=== PATIENT | female | born 1970 | race Caucasian/White ===

== ENCOUNTER → 2017-07-03 | Outpatient (CLI) | payer OTHER ==
[~2017-07-03] MED LIST: ACET-1693 PO; ALBU1AER9 INH; FLUT0.15 NAE; MELATAB2 PO; MULT-506 PO
--- NOTE | 2017-07-03 14:34 | DIAGNOSTIC IMAGING REPORT ---
TWO VIEW CHEST CLINICAL HISTORY: Chronic cough. FINDINGS: PA and lateral chest radiographs are compared to study dated 07/04/2014. The cardiomediastinal silhouette is unremarkable. The lungs and pleural spaces are clear. There is no pneumothorax. The bony thorax appears intact. IMPRESSION: No active disease in the chest. Electronically signed by: Kenrick Amanda M.D. 07/03/2017 2:32 PM Dictated Date/Time: 07/03/2017 2:32 PM
== END | disposition home or self-care (01) ==
LOC: C.RAD1850 14:07
PROVIDERS: ATTEND Family Medicine
DX: R05 Cough (principal)

== ENCOUNTER → 2017-07-15 | Outpatient (CLI) | payer OTHER ==
--- NOTE | 2017-07-15 15:58 | DIAGNOSTIC IMAGING REPORT ---
FUSION CT SINUSES W/O CLINICAL HISTORY: J32.9 Chronic sinusitis COMPARISON STUDY: No previous studies for comparison. FINDINGS: The right mastoid appears sclerotic, likely on a chronic basis. The middle ear cavities appear symmetrically aerated. There is very minimal maxilla sinus mucosal thickening. There is minor ethmoid sinus mucosal thickening. Frontal sinuses are hypoplastic. There are no air-fluid levels to indicate acute sinusitis. There are bilateral Gianni cells. There is soft tissue narrowing of the ostial portion of the right ostiomeatal unit. The ethmoid notches are protected. The left olfactory groove measures 6 mm in depth. The right olfactory groove measures 6 mm in depth. The sphenoid and frontal ethmoidal recesses appear patent bilaterally. There is a 7 mm faintly calcified lesion in the region of the right olfactory groove. An MRI without a with gadolinium, with thin sections targeted to this area is recommended in follow-up. IMPRESSION: 1. 7 mm faintly calcified lesion in the region of the right olfactory groove. An MRI is recommended in follow-up. 2. No evidence of acute sinusitis 3. Minor mucosal thickening within the maxillary and ethmoid sinuses 4. Sclerotic right mastoid likely chronic 5. Bilateral Gianni cells. Narrowing of the ostial portion of the right ostiomeatal unit Electronically signed by: Perfecto Shin M.D. 07/15/2017 3:57 PM Dictated Date/Time: 07/15/2017 3:48 PM
== END | disposition home or self-care (01) ==
LOC: C.CTS 15:09
PROVIDERS: ATTEND Physician Assistant
DX: J32.9 Chronic sinusitis, unspecified (principal)

== ENCOUNTER → 2017-07-26 | Outpatient (CLI) | payer OTHER ==
[~2017-07-26] MED LIST changes: +GADAVIST IV PRN
--- NOTE | 2017-07-27 08:00 | DIAGNOSTIC IMAGING REPORT ---
BRAIN COMBO CLINICAL HISTORY: 47 years-old Female presenting with R93.[address] scan PATIENT HAD CALCIFIED LESION OF olfactory groove on CT. TECHNIQUE: Multisequence, multiplanar MR imaging of the brain was performed before and after the administration of intravenous contrast. IV contrast: 12 mL of Gadavist. COMPARISON: CT of the sinuses from 07/15/2017. 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 This does not appear to contain brain parenchyma. A similar appearance is noted on the right though containing less CSF. Ill-defined parenchyma may be present on the right. This demonstrates enhancement (series 1201 image 51). Ventricles and sulci normal in size. Brain parenchyma normal in appearance with preserved burdick-white differentiation. No mass effect or midline shift. No restricted diffusion to suggest acute ischemia. No hemorrhage. No extra-axial fluid collection. T2 skull base flow voids preserved. Postcontrast imaging was not performed. Bone marrow signal intensity within the calvarium within normal limits. IMPRESSION: 1. Findings suggest diminutive frontoethmoidal encephaloceles. This does not contain brain parenchyma on the left may contain abnormal parenchyma on the right. 2. No acute intracranial pathology. No abnormal enhancement. Electronically signed by: Gunnar Salgado M.D. 07/27/2017 7:59 AM Dictated Date/Time: 07/27/2017 7:47 AM
== END | disposition home or self-care (01) ==
LOC: C.MRIBC 13:49
PROVIDERS: ATTEND Physician Assistant
DX: R93.8 Abnormal findings on diagnostic imaging of other specified body structures (principal)